=== PATIENT | female | born 1960 | race American Indian/Alaskan Native ===

== ENCOUNTER 2021-05-30 15:28 | Emergency (ER) | payer OTHER ==
[2021-05-30 16:06] VITALS: BP 181/114
--- NOTE | 2021-05-30 16:25 | Emergency Department Report ---
ED General Adult HPI - General Chief complaint: Recheck/Abnormal Lab/Rx Stated complaint: MEDICATION REFILL Time Seen by Provider: 05/30/21 16:18 Source: patient Mode of arrival: Ambulatory Limitations: No Limitations - History of Present Illness Initial comments: pt has asthma and used last inhale rthis am , wants MDI and nebs for a whole month no sob or hunter now -: year(s) Severity scale (0 -10): 0 Associated Symptoms: denies: denies other symptoms, confusion, chest pain, c ough, diaphoresis, fever/chills Treatments Prior to Arrival: none - Related Data Previous Rx's Medication Instructions Recorded Last Taken Type ALBUTEROL NEB's [Proventil 0.083% 2.5 mg IH PRN #1 pack 10/30/18 Unknown Rx NEBS] Albuterol Mdi (or & Nicu Only) 2 puff IH QID PRN #1 inhalation 10/30/18 Unknown Rx [ProAir HFA Inhaler] ALBUTEROL NEB's [Proventil 0.083% 2.5 mg IH PRN PRN 30 Days ml 05/30/21 Unknown Rx NEBS] Albuterol Mdi (or & Nicu Only) 2 puff IH QID PRN #8.5 gram 05/30/21 Unknown Rx [ProAir HFA Inhaler] Allergies Allergy/AdvReac Type Severity Reaction Status Date / Time Penicillins Allergy Unknown Verified 05/30/21 16:24 ED Review of Systems ROS: Stated complaint: MEDICATION REFILL Other details as noted in HPI Constitutional: denies: chills, fever Eyes: denies: eye pain, eye discharge, vision change ENT: denies: ear pain, throat pain Respiratory: denies: cough, shortness of breath, wheezing Cardiovascular: denies: chest pain, palpitations Endocrine: no symptoms reported Gastrointestinal: denies: abdominal pain, nausea, diarrhea Genitourinary: denies: urgency, dysuria, discharge Musculoskeletal: denies: back pain, joint swelling, arthralgia Skin: denies: rash, lesions Neurological: denies: headache, weakness, paresthesias Psychiatric: denies: anxiety, depression Hematological/Lymphatic: denies: easy bleeding, easy bruising ED Past Medical Hx - Past Medical History Previous Medical History?: No Hx Hypertension: No Hx Asthma: Yes - Social History Smoking Status: Never Smoker Substance Use Type: None - Medications Home Medications: Home Medications Medication Instructions Recorded Confirmed Last Taken Type ALBUTEROL NEB's [Proventil 0.083% 2.5 mg IH PRN #1 pack 10/30/18 Unknown Rx NEBS] Albuterol Mdi (or & Nicu Only) 2 puff IH QID PRN #1 inhalation 10/30/18 Unknown Rx [ProAir HFA Inhaler] ALBUTEROL NEB's [Proventil 0.083% 2.5 mg IH PRN PRN 30 Days ml 05/30/21 Unknown Rx NEBS] Albuterol Mdi (or & Nicu Only) 2 puff IH QID PRN #8.5 gram 05/30/21 Unknown Rx [ProAir HFA Inhaler] ED Physical Exam - General Limitations: No Limitations General appearance: alert, in no apparent distress - Head Head exam: Present: atraumatic, normocephalic - Eye Eye exam: Present: normal appearance - ENT ENT exam: Present: mucous membranes moist - Neck Neck exam: Present: normal inspection - Respiratory Respiratory exam: Present: normal lung sounds bilaterally. Absent: respiratory distress - Cardiovascular Cardiovascular Exam: Present: regular rate, normal rhythm. Absent: systolic murmur, diastolic murmur, rubs, gallop - GI/Abdominal GI/Abdominal exam: Present: soft, normal bowel sounds - Extremities Exam Extremities exam: Present: normal inspection - Back Exam Back exam: Present: normal inspection - Neurological Exam Neurological exam: Present: alert, oriented X3 - Psychiatric Psychiatric exam: Present: normal affect, normal mood - Skin Skin exam: Present: warm, dry, intact, normal color. Absent: rash ED Course Vital Signs 05/30/21 05/30/21 05/30/21 16:03 16:09 16:12 Temperature 98.3 F 98.2 F 98.2 F Pulse Rate 66 66 66 Respiratory 16 20 20 Rate Blood Pressure 181/114 Blood Pressure 181/114 181/114 [Left] O2 Sat by Pulse 98 98 98 Oximetry Critical care attestation.: If time is entered above; I have spent that time in minutes in the direct care of this critically ill patient, excluding procedure time. ED Disposition Clinical Impression: Asthma exacerbation, Medication refill Disposition: HOME / SELF CARE / HOMELESS Is pt being admited?: No Does the pt Need Aspirin: No Condition: Stable Instructions: Asthma, Adult Prescriptions: Albuterol Mdi (or & Nicu Only) [ProAir HFA Inhaler] 2 puff IH QID PRN #8.5 gram PRN Reason: Shortness Of Breath ALBUTEROL NEB's [Proventil 0.083% NEBS] 2.5 mg IH PRN PRN 30 Days ml PRN Reason: Shortness Of Breath
== END 2021-05-30 16:42 | disposition home or self-care (01) ==
LOC: ED 15:28
DX: J45.909 Unspecified asthma, uncomplicated (principal); Z76.0 Encounter for issue of repeat prescription; Z88.8 Allergy status to other drugs, medicaments and biological substances; Z79.899 Other long term (current) drug therapy; Z88.0 Allergy status to penicillin
CPT/HCPCS: 99282

== ENCOUNTER 2021-07-06 15:07 | Emergency (ER) | payer OTHER ==
[2021-07-06] MEDS ORDERED: ALBUTEROL 2.5 MG/3 ML NEBU IH ONE (17:38)
[2021-07-06] MEDS ORDERED: IPRATROPIUM 0.02% NEBU 2.5 ML IH ONE (17:38)
--- NOTE | 2021-07-06 19:16 | XRay Report ---
CHEST 2 VIEWS INDICATION / CLINICAL INFORMATION: Shortness of breath. COMPARISON: None available. FINDINGS: SUPPORT DEVICES: None. HEART / MEDIASTINUM: The heart size and pulmonary vasculature are normal. LUNGS / PLEURA: No significant pulmonary or pleural abnormality. There are nipple shadows overlying b oth lower lung zones on the PA view. No pneumothorax. ADDITIONAL FINDINGS: No significant additional findings. IMPRESSION: No acute findings. Signer Name: Dorian Camacho MD Signed: 07/06/2021 7:12 PM Workstation Name: [id number]
== END 2021-07-06 20:00 | disposition left against medical advice (07) ==
LOC: ED 15:07
DX: J45.909 Unspecified asthma, uncomplicated (principal); Z76.0 Encounter for issue of repeat prescription; Z53.21 Procedure and treatment not carried out due to patient leaving prior to being seen by health care provider
CPT/HCPCS: 71046; 93005; 94640; 94644

== ENCOUNTER 2021-08-14 10:16 | Inpatient (IN) | payer OTHER ==
[2021-08-14] MEDS ORDERED: methylPREDNISolone Sod Succinate 125 MG/2 ML INJ IV ONE (10:30)
[2021-08-14] MEDS ORDERED: ALBUTEROL 2.5 MG/3 ML NEBU IH ONE ×2 (10:30→12:16)
[2021-08-14] MEDS ORDERED: SODIUM CHLORIDE 0.9% 500 ML 500 ML IV ONE (10:30)
[2021-08-14] MEDS ORDERED: IPRATROPIUM 0.02% NEBU 2.5 ML IH ONE ×2 (10:30→12:17)
--- NOTE | 2021-08-14 10:59 | XRay Report ---
CHEST 2 VIEWS INDICATION / CLINICAL INFORMATION: Dyspnea. COMPARISON: 07/06/2021 FINDINGS: SUPPORT DEVICES: None. HEART / MEDIASTINUM: There is mild cardiomegaly which appears to be new since 07/06/2021. LUNGS / PLEURA: Mild central pulmonary venous congestion and trace left pleural effusion are identifi ed which are also new. No evidence for pneumonia or pneumothorax. ADDITIONAL FINDINGS: No significant additional findings. IMPRESSION: 1. Mild CHF or volume overload which is new since 07/06/2021. Signer Name: Buster Rolon Jr, MD Signed: 08/14/2021 10:55 AM Workstation Name: [id number]
[2021-08-14 11:15] LABS: Basophils # (Auto) 0.1 K/mm3 (0.0-0.1); Basophils % (Auto) 1.2 % (0.0-1.8); Eosinophils # (Auto) 0.1 K/mm3 (0.0-0.4); Eosinophils % (Auto) 0.9 % (0.0-4.3); Hematocrit 41.9 % (30.3-42.9); Hemoglobin 13.5 gm/dl (10.1-14.3); Lymphocytes # (Auto) 1.2 K/mm3 (1.2-5.4); Lymphocytes % (Auto) 15.4 % (13.4-35.0); Mean Corpuscular HGB Conc 32 % (30-34); Mean Corpuscular Volume 92 fl (79-97); Monocytes # (Auto) 0.6 K/mm3 (0.0-0.8); Monocytes % (Auto) 8.2 % (0.0-7.3); Platelet Count 167 K/mm3 (140-440); Red Blood Count 4.56 M/mm3 (3.65-5.03); Red Cell Distribution Width 15.2 % (13.2-15.2)
[2021-08-14] MEDS ORDERED: FUROSEMIDE 40 MG/4 ML INJ IV ONE (11:24)
--- NOTE | 2021-08-14 11:29 | Electrocardiograph Report ---
[facility] Test Date: 2021-08-14 Test Time: 10:56:33 Pat Name: KRYSTA PATEL Department: Room: Gender: F [employer] Operator: LOLI ZURITAB: 1960 Requested By: EVANGELIST JIMENEZ Order Number: [id number] Reading MD: Chris Davies Measurements Intervals [place] Rate: 92 P: 82 CO: 183 QRS: -64 QRSD: 105 T: 72 QT: 388 QTc: 482 Interpretive Statements Sinus rhythm Ventricular premature complex Biatrial enlargement Incomplete RBBB and LAFB Left ventricular hypertrophy Anterior infarct, old Electronically Signed On 08-14-2021 11:28:51 EDT by Chris Davies
[2021-08-14 11:34] LABS: Alanine Aminotransferase 13 units/L (7-56); Albumin 4.4 g/dL (3.9-5); Blood Urea Nitrogen 8 mg/dL (7-17); Calcium 9.2 mg/dL (8.4-10.2); Hemolysis Index 3
[2021-08-14 11:44] LABS: BUN/Creatinine Ratio 11
[2021-08-14 11:59] LABS: INR 0.98 (0.87-1.13)
--- NOTE | 2021-08-14 12:33 | Emergency Department Report ---
ED Shortness of Breath HPI - General Chief Complaint: Dyspnea/Respdistress Stated Complaint: HUNTER Time Seen by Provider: 08/14/21 10:27 Source: EMS Mode of arrival: Stretcher Limitations: No Limitations - History of Present Illness Initial Comments: pt here for hunter, pursed lip breather on arrival, received 2.5 albuterol bellman captain, on nonrebreather MD Complaint: shortness of breath -: Gradual Pain Scale: 2 Consistency: constant Known History Of: COPD, asthma - Related Data Previous Rx's Medication Instructions Recorded Last Taken Type ALBUTEROL NEB's [Proventil 0.083% 2.5 mg IH PRN #1 pack 10/30/18 Unknown Rx NEBS] Albuterol Mdi (or & Nicu Only) 2 puff IH QID PRN #1 inhalation 10/30/18 Unknown Rx [ProAir HFA Inhaler] ALBUTEROL NEB's [Proventil 0.083% 2.5 mg IH PRN PRN 30 Days ml 05/30/21 Unknown Rx NEBS] Albuterol Mdi (or & Nicu Only) 2 puff IH QID PRN #8.5 gram 05/30/21 Unknown Rx [ProAir HFA Inhaler] Allergies Allergy/AdvReac Type Severity Reaction Status Date / Time Penicillins Allergy Unknown Verified 08/14/21 10:25 ED Review of Systems ROS: Stated complaint: HUNTER Other details as noted in HPI Constitutional: denies: chills, fever Eyes: denies: eye pain, eye discharge, vision change ENT: denies: ear pain, throat pain Respiratory: denies: cough, shortness of breath, wheezing Cardiovascular: denies: chest pain, palpitations Endocrine: no symptoms reported Gastrointestinal: denies: abdominal pain, nausea, diarrhea Genitourinary: denies: urgency, dysuria, discharge Musculoskeletal: denies: back pain, joint swelling, arthralgia Skin: denies: rash, lesions Neurological: denies: headache, weakness, paresthesias Psychiatric: denies: anxiety, depression Hematological/Lymphatic: denies: easy bleeding, easy bruising ED Past Medical Hx - Past Medical History Previous Medical History?: Yes Hx Hypertension: No Hx Asthma: Yes Hx COPD: Yes - Surgical History Past Surgical History?: No - Social History Smoking Status: Never Smoker Substance Use Type: None - Medications Home Medications: Home Medications Medication Instructions Recorded Confirmed Last Taken Type ALBUTEROL NEB's [Proventil 0.083% 2.5 mg IH PRN #1 pack 10/30/18 05/30/21 Unkn own Rx NEBS] Albuterol Mdi (or & Nicu Only) 2 puff IH QID PRN #1 inhalation 10/30/18 05/30/21 Unknown Rx [ProAir HFA Inhaler] ALBUTEROL NEB's [Proventil 0.083% 2.5 mg IH PRN PRN 30 Days ml 05/30/21 Unknown Rx NEBS] Albuterol Mdi (or & Nicu Only) 2 puff IH QID PRN #8.5 gram 05/30/21 Unknown Rx [ProAir HFA Inhaler] ED Physical Exam - General Limitations: No Limitations General appearance: alert, in distress - Head Head exam: Present: atraumatic, normocephalic - Eye Eye exam: Present: normal appearance - ENT ENT exam: Present: mucous membranes moist - Neck Neck exam: Present: normal inspection - Respiratory Respiratory exam: Present: wheezes, rales. Absent: respiratory distress - Cardiovascular Cardiovascular Exam: Present: regular rate, normal rhythm. Absent: systolic murmur, diastolic murmur, rubs, gallop - GI/Abdominal GI/Abdominal exam: Present: soft, normal bowel sounds - Extremities Exam Extremities exam: Present: normal inspection - Back Exam Back exam: Present: normal inspection - Neurological Exam Neurological exam: Present: alert, oriented X3 - Psychiatric Psychiatric exam: Present: normal affect, normal mood - Skin Skin exam: Present: warm, dry, intact, normal color. Absent: rash ED Course Vital Signs 08/14/21 08/14/21 08/14/21 10:24 10:41 10:46 Temperature 98.6 F Pulse Rate 95 H Pulse Rate [ Anterior Bilateral Throughout] Pulse Rate [ Anterior Bilateral] Respiratory 16 0 L 12 Rate Respiratory Rate [Anterior Bilateral Throughout] Respiratory Rate [Anterior Bilateral] Blood Pressure Blood Pressure 155/69 [Left] O2 Sat by Pulse 100 100 97 Oximetry 08/14/21 08/14/21 11:00 12:21 Temperature Pulse Rate 94 H Pulse Rate [ 88 Anterior Bilateral Throughout] Pulse Rate [ 90 98 H Anterior Bilateral] Respiratory 17 Rate Respiratory 26 H Rate [Anterior Bilateral Throughout] Respiratory 24 28 H Rate [Anterior Bilateral] Blood Pressure 162/81 Blood Pressure [Left] O2 Sat by Pulse 94 Oximetry ED Medical Decision Making - Lab Data Result diagrams: 08/14/21 10:47 08/14/21 10:47 Critical care attestation.: If time is entered above; I have spent that time in minutes in the direct care of this critically ill patient, excluding procedure time. ED Disposition Clinical Impression: SOB (shortness of breath), Hypoxia, COPD exacerbation, CHF exacerbation Disposition: ADMITTED INPATIENT Is pt being admited?: Yes Does the pt Need Aspirin: No Condition: Fair Instructions: Chronic Obstructive Pulmonary Disease (ED)
[2021-08-14] MEDS ORDERED: ONDANSETRON 4 MG/2 ML INJ IV PRN (13:00)
[2021-08-14] MEDS ORDERED: ACETAMINOPHEN 325 MG TAB PO PRN (13:00)
--- NOTE | 2021-08-14 13:04 | History and Physical Report ---
<ANDRADE CARROLL - Last Filed: 08/14/21 12:59> History of Present Illness Date of examination: 08/14/21 Date of admission: 08/14/2021 Chief complaint: Difficulty in breathing History of present illness: 61-year-old -[place] female who is an ongoing smoker with history of COPD/asthma, and CVA who presents to [facility], [place] via EMS with complaints of difficulty in breathing. Of note patient is a poor historian. Reports worsening shortness of breath and difficulty in breathing x1 day. Patient states she was unable to perform ADLs or walk more than 10 steps without becoming profoundly short of breath and needing to take a rest. She tried using rescue inhaler with no relief, and patient's daughter Kirill ([phone]) called EMS. EMS found pt to be hypoxic with O2 sat 84-85% on RA. She was placed on supplemental O2 and given albuterol neb tx by EMS with no relief. Work-up included imaging and labs, which showed elevated proBNP at 819, and CXR showing mild volume overload. Endorses bilateral lower extremity edema. Denies cough, sputum production, hemoptysis, fever, chills, nausea, vomiting, diarrhea, constipation, abdominal pain, previous cardiac work-up, or recent sick exposures Past History Past Medical History: COPD (/ Asthma), stroke (mini stroke 2015) Past Surgical History: Other (Tubal ligation) Social history: single, smoking, full code. denies: alcohol abuse, prescription drug abuse, IV drug use Family history: hypertension Medications and Allergies Allergies Allergy/AdvReac Type Severity Reaction Status Date / Time Penicillins Allergy Unknown Verified 08/14/21 10:25 Home Medications Medication Instructions Recorded Confirmed Last Taken Type ALBUTEROL NEB's [Proventil 0.083% 2.5 mg IH PRN PRN 30 Days #30 ml 08/17/21 Unknown Rx NEBS] Albuterol Mdi (or & Nicu Only) 2 puff IH QID PRN #8.5 gram 08/17/21 Unknown Rx [ProAir HFA Inhaler] Aspirin [Aspirin BABY CHEW TAB] 81 mg PO QDAY #30 tab.chew 08/17/21 Unknown Rx AtorvaSTATin [Lipitor] 20 mg PO QHS #30 tablet 08/17/21 Unknown Rx Budesonide [Pulmicort Respules] 0.5 mg IH Q12HRT #30 nebu 08/17/21 Unknown Rx Metoprolol [Lopressor TAB] 25 mg PO BID #60 tablet 08/17/21 Unknown Rx Nicotine [Habitrol] 14 mg TD QDAY #30 patch 08/17/21 Unknown Rx Prednisone [predniSONE 10 mg 10 mg PO .TAPER #1 08/17/21 Unknown Rx (6-Day Pack, 21 Tabs)] lisinopriL [Zestril TAB] 10 mg PO QDAY #30 tablet 08/17/21 Unknown Rx Active Meds: Active Medications Acetaminophen (Acetaminophen 325 Mg Tab) 650 mg PO Q4H PRN PRN Reason: Pain MILD(1-3)/Fever >100.5/ROBLES Albuterol (Albuterol 2.5 Mg/3 Ml Nebu) 2.5 mg IH Q3HRT PRN PRN Reason: Shortness Of Breath Albuterol/Ipratropium (Ipratropium/Albuterol Sulfate 3 Ml Ampul.Neb) 1 ampul IH Q6HRT JONH Aspirin (Aspirin 81 Mg Tab Chew) 81 mg PO QDAY JONH Budesonide (Budesonide 0.5 Mg/2 Ml Nebu) 0.5 mg IH Q12HRT JONH Docusate Sodium (Docusate Sodium 100 Mg Cap) 100 mg PO BID JONH Heparin Sodium (Porcine) (Heparin 5,000 Unit/1 Ml Vial) 5,000 unit SUB-Q Q8HR JONH Lisinopril (Lisinopril 5 Mg Tab) 5 mg PO QDAY JOHN Methylprednisolone Sodium Succinate (Methylprednisolone Sod Succinate 125 Mg/2 Ml Inj) 60 mg IV Q8HR [facility] Nitroglycerin (Nitroglycerin 0.4 Mg Tab Subl) 0.4 mg SL .Q5MIN PRN PRN Reason: Chest Pain Ondansetron HCl (Ondansetron 4 Mg/2 Ml Inj) 4 mg IV Q8H PRN PRN Reason: Nausea And Vomiting Oxycodone/Acetaminophen (Oxycodone /Acetaminophen 5-325mg Tab) 1 tab PO Q6H PRN PRN Reason: Pain, Moderate (4-6) Sodium Chloride (Sodium Chloride 0.9% 10 Ml Flush Syringe) 10 ml IV BID [facility] Sodium Chloride (Sodium Chloride 0.9% 10 Ml Flush Syringe) 10 ml IV PRN PRN PRN Reason: LINE FLUSH Review of Systems All systems: negative Cardiovascular: edema (Bilateral lower extremity), dyspnea on exertion Respiratory: shortness of breath, dyspnea on exertion, wheezing Exam - Physical Exam Narrative exam: Physical exam General appearance: Present: Mild distress, alert and oriented 3 female - EENT Eyes: Present: PERRL, EOM intact ENT: hearing intact, missing teeth - Neck Neck: Present: supple, normal ROM - Respiratory Respiratory effort: Slightly labored labored, on supplemental oxygen Respiratory: Clear throughout - Cardiovascular Heart rate: 94 (bpm) Rhythm: Sinus with occasional PVC, incomplete right bundle branch block Heart Sounds: Present: S1 & S2. Absent: rub, click - Extremities Extremities: no ischemia, pulses intact, bilateral lower extremity trace edema - Peripheral Assessment Peripheral Pulses: within normal limits - Abdominal General gastrointestinal: soft, non-tender, normal bowel sounds - Integumentary Integumentary: Present: warm, dry - Musculoskeletal Musculoskeletal: Able to move all extremities -Neurological Neurological: CN II-XII intact - Psychiatric Psychiatric: Appropriate for situation ,cooperative - Constitutional Vitals: Temp Pulse Resp BP Pulse Ox 98.6 F 98 H 28 H 162/81 94 08/14/21 10:24 08/14/21 12:21 08/14/21 12:21 08/14/21 11:00 08/14/21 11:00 HEART Score - HEART Score Troponin: Troponin T < 0.010 ng/mL (0.00-0.029) 08/14/21 10:47 Results - Labs CBC & Chem 7: 08/14/21 10:47 08/14/21 10:47 Labs: Laboratory Last Values WBC 7.7 K/mm3 (4.5-11.0) 08/14/21 10:47 RBC 4.56 M/mm3 (3.65-5.03) 08/14/21 10:47 Hgb 13.5 gm/dl (10.1-14.3) 08/14/21 10:47 Hct 41.9 % (30.3-42.9) 08/14/21 10:47 MCV 92 fl (79-97) 08/14/21 10:47 MCH 30 pg (28-32) 08/14/21 10:47 MCHC 32 % (30-34) 08/14/21 10:47 RDW 15.2 % (13.2-15.2) 08/14/21 10:47 Plt Count 167 K/mm3 (140-440) 08/14/21 10:47 Lymph % (Auto) 15.4 % (13.4-35.0) 08/14/21 10:47 [place] % (Auto) 8.2 % (0.0-7.3) H 08/14/21 10:47 Eos % (Auto) 0.9 % (0.0-4.3) 08/14/21 10:47 Baso % (Auto) 1.2 % (0.0-1.8) 08/14/21 10:47 Lymph # (Auto) 1.2 K/mm3 (1.2-5.4) 08/14/21 10:47 [place] # (Auto) 0.6 K/mm3 (0.0-0.8) 08/14/21 10:47 Eos # (Auto) 0.1 K/mm3 (0.0-0.4) 08/14/21 10:47 Baso # (Auto) 0.1 K/mm3 (0.0-0.1) 08/14/21 10:47 Add Manual Diff Complete 08/14/21 10:47 Seg Neutrophils % 74.3 % (40.0-70.0) H 08/14/21 10:47 Seg Neutrophils # 5.7 K/mm3 (1.8-7.7) 08/14/21 10:47 PT 14.1 Sec. (12.2-14.9) 08/14/21 10:47 INR 0.98 (0.87-1.13) 08/14/21 10:47 Sodium 142 mmol/L (137-145) 08/14/21 10:47 Potassium 3.7 mmol/L (3.6-5.0) 08/14/21 10:47 Chloride 105.3 mmol/L (98-107) 08/14/21 10:47 Carbon Dioxide 24 mmol/L (22-30) 08/14/21 10:47 Anion Gap 16 mmol/L 08/14/21 10:47 BUN 8 mg/dL (7-17) 08/14/21 10:47 Creatinine 0.7 mg/dL (0.6-1.2) 08/14/21 10:47 Estimated GFR > 60 ml/min 08/14/21 10:47 BUN/Creatinine Ratio 11 % 08/14/21 10:47 Glucose 118 mg/dL (65-100) H 08/14/21 10:47 Calcium 9.2 mg/dL (8.4-10.2) 08/14/21 10:47 Total Bilirubin 0.60 mg/dL (0.1-1.2) 08/14/21 10:47 AST 20 units/L (5-40) 08/14/21 10:47 ALT 13 units/L (7-56) 08/14/21 10:47 Alkaline Phosphatase 86 units/L (35-129) 08/14/21 10:47 Total Creatine Kinase 93 units/L (30-135) 08/14/21 10:47 CK-MB (CK-2) 3.0 ng/mL (0.0-4.0) 08/14/21 10:47 CK-MB (CK-2) Rel Index 3.2 (0-4) 08/14/21 10:47 Troponin T < 0.010 ng/mL (0.00-0.029) 08/14/21 10:47 NT-Pro-B Natriuret Pep 819.7 pg/mL (0-900) 08/14/21 10:47 Total Protein 7.1 g/dL (6.3-8.2) 08/14/21 10:47 Albumin 4.4 g/dL (3.9-5) 08/14/21 10:47 Albumin/Globulin Ratio 1.6 % 08/14/21 10:47 - Diagnostic Impressions Diagnostic Impressions: FINDINGS: SUPPORT DEVICES: None. HEART / MEDIASTINUM: There is mild cardiomegaly which appears to be new since 07/06/2021. LUNGS / PLEURA: Mild central pulmonary venous congestion and trace left pleural effusion are identified which are also new. No evidence for pneumonia or pneumothorax. ADDITIONAL FINDINGS: No significant additional findings. IMPRESSION: 1. Mild CHF or volume overload which is new since 07/06/2021. Assessment and Plan Assessment and plan: Acute CHF (new onset) -BNP elevated at 819 -Troponin negative x1, trend -CXR shows Mild CHF or volume overload which is new since 07/06/2021 -Patient has trace bilateral lower extremity edema -Start IV Lasix daily -Continuous remote expanded function dental assistant -Echo pending -Will continue small telemetry monitoring -Start ASA, statin and SCAR, hold beta-kevin due to incomplete right bundle branch block -Cardiology consulted with plans to follow Acute hypoxic respiratory failure -No Baseline home oxygen requirements with history of COPD/asthma -O2 sat 84-88% on RA -Currently on supplemental 4L -On IV steroids -On scheduled duo nebs and Pulmicort, as needed albuterol -Monitor saturations -Continue supplemental oxygen wean as tolerated COPD/ Asthma -Does not appear to be in acute exacerbation -On schedule and as needed nebs -IV systemic steroids Tobacco abuse -Current every day smoker -Counseled for cessation for 14 minutes, verbalized understanding -Nicotine patch when necessary DVT PPX -On Heparin <AICHA MARINELLI - Last Filed: 08/18/21 07:15> History of Present Illness Date of admission: 08/16/21 13:11 History of present illness: I saw and evaluated the patient. I agree with the findings and the plan of care as documented in the Nurse Practitioner's~note, with the following corrections and additions. Exam - Constitutional Vitals: Temp Pulse Resp BP Pulse Ox 97.6 F 81 18 112/58 95 08/17/21 11:00 08/17/21 13:50 08/17/21 13:50 08/17/21 08:56 08/17/21 12:15 HEART Score - HEART Score Troponin: Troponin T < 0.010 ng/mL (0.00-0.029) 08/14/21 13:55 Results - Labs CBC & Chem 7: 08/14/21 10:47 08/15/21 05:26 Labs: Laboratory Last Values WBC 7.7 K/mm3 (4.5-11.0) 08/14/21 10:47 RBC 4.56 M/mm3 (3.65-5.03) 08/14/21 10:47 Hgb 13.5 gm/dl (10.1-14.3) 08/14/21 10:47 Hct 41.9 % (30.3-42.9) 08/14/21 10:47 MCV 92 fl (79-97) 08/14/21 10:47 MCH 30 pg (28-32) 08/14/21 10:47 MCHC 32 % (30-34) 08/14/21 10:47 RDW 15.2 % (13.2-15.2) 08/14/21 10:47 Plt Count 167 K/mm3 (140-440) 08/14/21 10:47 Lymph % (Auto) 15.4 % (13.4-35.0) 08/14/21 10:47 [place] % (Auto) 8.2 % (0.0-7.3) H 08/14/21 10:47 Eos % (Auto) 0.9 % (0.0-4.3) 08/14/21 10:47 Baso % (Auto) 1.2 % (0.0-1.8) 08/14/21 10:47 Lymph # (Auto) 1.2 K/mm3 (1.2-5.4) 08/14/21 10:47 [place] # (Auto) 0.6 K/mm3 (0.0-0.8) 08/14/21 10:47 Eos # (Auto) 0.1 K/mm3 (0.0-0.4) 08/14/21 10:47 Baso # (Auto) 0.1 K/mm3 (0.0-0.1) 08/14/21 10:47 Add Manual Diff Complete 08/14/21 10:47 Seg Neutrophils % 74.3 % (40.0-70.0) H 08/14/21 10:47 Seg Neutrophils # 5.7 K/mm3 (1.8-7.7) 08/14/21 10:47 PT 14.1 Sec. (12.2-14.9) 08/14/21 10:47 INR 0.98 (0.87-1.13) 08/14/21 10:47 Sodium 138 mmol/L (137-145) 08/15/21 05:26 Potassium 4.0 mmol/L (3.6-5.0) 08/15/21 05:26 Chloride 97.0 mmol/L (98-107) L 08/15/21 05:26 Carbon Dioxide 25 mmol/L (22-30) 08/15/21 05:26 Anion Gap 20 mmol/L 08/15/21 05:26 BUN 19 mg/dL (7-17) H 08/15/21 05:26 Creatinine 0.8 mg/dL (0.6-1.2) 08/15/21 05:26 Estimated GFR > 60 ml/min 08/15/21 05:26 BUN/Creatinine Ratio 24 % 08/15/21 05:26 Glucose 181 mg/dL (65-100) H 08/15/21 05:26 Calcium 9.1 mg/dL (8.4-10.2) 08/15/21 05:26 Magnesium 1.80 mg/dL (1.7-2.3) 08/14/21 13:58 Total Bilirubin 0.60 mg/dL (0.1-1.2) 08/14/21 10:47 AST 20 units/L (5-40) 08/14/21 10:47 ALT 13 units/L (7-56) 08/14/21 10:47 Alkaline Phosphatase 86 units/L (35-129) 08/14/21 10:47 Total Creatine Kinase 93 units/L (30-135) 08/14/21 10:47 CK-MB (CK-2) 3.0 ng/mL (0.0-4.0) 08/14/21 10:47 CK-MB (CK-2) Rel Index 3.2 (0-4) 08/14/21 10:47 Troponin T < 0.010 ng/mL (0.00-0.029) 08/14/21 13:55 NT-Pro-B Natriuret Pep 819.7 pg/mL (0-900) 08/14/21 10:47 Total Protein 7.1 g/dL (6.3-8.2) 08/14/21 10:47 Albumin 4.4 g/dL (3.9-5) 08/14/21 10:47 Albumin/Globulin Ratio 1.6 % 08/14/21 10:47 Triglycerides 34 mg/dL (2-149) 08/15/21 05:26 Cholesterol 143 mg/dL (50-199) 08/15/21 05:26 LDL Cholesterol Direct 64 mg/dL (50-130) 08/15/21 05:26 HDL Cholesterol 78 mg/dL (40-59) H 08/15/21 05:26 Cholesterol/HDL Ratio 1.83 % 08/15/21 05:26 [place]/IV: Voiding Method Toilet
[2021-08-14] MEDS ORDERED: ALBUTEROL 2.5 MG/3 ML NEBU IH PRN (14:00)
--- NOTE | 2021-08-14 14:20 | Consultation ---
History of Present Illness Consult date: 08/14/21 Requesting physician: ANDRADE CARROLL Consult reason: congestive heart failure History of present illness: Patient is a 61-year-old female with a past medical history of COPD/asthma, CVA, and current smoker for over 30 years who presented to the ED today with a complaint of shortness of breath which began last night. Patient is a poor historian. Patient reports that after her shift last night when she was home she developed sudden onset shortness of breath that was worse with exertion. However patient also reports that her shortness of breath persisted even while at rest. She reports that she attempted to take her inhaler and nebulizer treatment with no relief of symptoms. Per documentation EMS was notified and patient was found to be hypoxic and transported to the ED. Patient also reports sharp left upper quadrant abdominal pain with inspiration and cough and chronic orthopnea. In the ED labs were unremarkable with a borderline BNP of 819. CXR read mild volume overload. Patient denies chest pain, nausea, vomiting, diaphoresis, or palpitations. Patient is previously unknown to our practice. Cardiology is consulted for CHF. Past History Past Medical History: COPD (/ Asthma), stroke (mini stroke 2015) Past Surgical History: Other (Tubal ligation) Social history: single, smoking, full code. denies: alcohol abuse, prescription drug abuse, IV drug use Family history: hypertension Medications and Allergies Allergies Allergy/AdvReac Type Severity Reaction Status Date / Time Penicillins Allergy Unknown Verified 08/14/21 10:25 Home Medications Medication Instructions Recorded Confirmed Last Taken Type ALBUTEROL NEB's [Proventil 0.083% 2.5 mg IH PRN #1 pack 10/30/18 05/30/21 Unknown Rx NEBS] Albuterol Mdi (or & Nicu Only) 2 puff IH QID PRN #1 inhalation 10/30/18 05/30/21 Unknown Rx [ProAir HFA Inhaler] ALBUTEROL NEB's [Proventil 0.083% 2.5 mg IH PRN PRN 30 Days ml 05/30/21 Unknown Rx NEBS] Albuterol Mdi (or & Nicu Only) 2 puff IH QID PRN #8.5 gram 05/30/21 Unknown Rx [ProAir HFA Inhaler] Active Meds: Active Medications Acetaminophen (Acetaminophen 325 Mg Tab) 650 mg PO Q4H PRN PRN Reason: Pain MILD(1-3)/Fever >100.5/ROBLES Albuterol (Albuterol 2.5 Mg/3 Ml Nebu) 2.5 mg IH Q3HRT PRN PRN Reason: Shortness Of Breath Albuterol/Ipratropium (Ipratropium/Albuterol Sulfate 3 Ml Ampul.Neb) 1 ampul IH Q6HRT [facility] Aspirin (Aspirin 81 Mg Tab Chew) 81 mg PO QDAY [facility] Atorvastatin Calcium (Atorvastatin 20 Mg Tab) 20 mg PO QHS [facility] Budesonide (Budesonide 0.5 Mg/2 Ml Nebu) 0.5 mg IH Q12HRT [facility] Docusate Sodium (Docusate Sodium 100 Mg Cap) 100 mg PO BID [facility] Furosemide (Furosemide 40 Mg/4 Ml Inj) 40 mg IV QDAY [facility] Heparin Sodium (Porcine) (Heparin 5,000 Unit/1 Ml Vial) 5,000 unit SUB-Q Q8HR [facility] Lisinopril (Lisinopril 10 Mg Tab) 10 mg PO QDAY [facility] Methylprednisolone Sodium Succinate (Methylprednisolone Sod Succinate 125 Mg/2 Ml Inj) 60 mg IV Q8H [facility] Metoprolol Tartrate (Metoprolol Tartrate 25 Mg Tab) 25 mg PO BID [facility] Nicotine (Nicotine 14 Mg/24 Hr Patch) 14 mg TD QDAY [facility] Nitroglycerin (Nitroglycerin 0.4 Mg Tab Subl) 0.4 mg SL .Q5MIN PRN PRN Reason: Chest Pain Ondansetron HCl (Ondansetron 4 Mg/2 Ml Inj) 4 mg IV Q8H PRN PRN Reason: Nausea And Vomiting Oxycodone/Acetaminophen (Oxycodone /Acetaminophen 5-325mg Tab) 1 tab PO Q6H PRN PRN Reason: Pain, Moderate (4-6) Sodium Chloride (Sodium Chloride 0.9% 10 Ml Flush Syringe) 10 ml IV BID [facility] Sodium Chloride (Sodium Chloride 0.9% 10 Ml Flush Syringe) 10 ml IV PRN PRN PRN Reason: LINE FLUSH Review of Systems Constitutional: no weight loss, no weight gain, no fever, no chills Ears, nose, mouth and throat: no sinus pressure, no sinus pain Cardiovascular: orthopnea, shortness of breath, dyspnea on exertion Respiratory: cough, shortness of breath, dyspnea on exertion, pain on inspiration Gastrointestinal: abdominal pain (Left upper quad), no nausea, no vomiting, no diarrhea Musculoskeletal: no neck stiffness, no neck pain, no shooting arm pain Integumentary: no rash, no pruritis, no redness Neurological: no head injury, no transient paralysis Psychiatric: no anxiety, no memory loss Endocrine: no cold intolerance, no heat intolerance Physical Examination Vital Signs Temp Pulse Resp BP Pulse Ox 98.6 F 95 H 16 155/69 100 08/14/21 10:24 08/14/21 10:24 08/14/21 10:24 08/14/21 10:24 08/14/21 10:24 General appearance: no acute distress HEENT: Positive: PERRL, Normocephaly Neck: Positive: trachea midline Cardiac: Positive: Reg Rate and Rhythm Lungs: Positive: Decreased Breath Sounds Neuro: Positive: Grossly Intact Abdomen: Positive: Soft Skin: Negative: Rash, Suspicious Lesions, Ulceration Extremities: Present: upper extr. pulses, edema (Trace), Cool Results 08/14/21 10:47 08/14/21 10:47 Cardiac Enzymes 08/14/21 Range/Units 10:47 AST 20 (5-40) units/L CK-MB (CK-2) 3.0 (0.0-4.0) ng/mL Coagulation 08/14/21 Range/Units 10:47 PT 14.1 (12.2-14.9) Sec. INR 0.98 (0.87-1.13) CBC 08/14/21 Range/Units 10:47 WBC 7.7 (4.5-11.0) K/mm3 RBC 4.56 (3.65-5.03) M/mm3 Hgb 13.5 (10.1-14.3) gm/dl Hct 41.9 (30.3-42.9) % Plt Count 167 (140-440) K/mm3 Lymph # (Auto) 1.2 (1.2-5.4) K/mm3 [place] # (Auto) 0.6 (0.0-0.8) K/mm3 Eos # (Auto) 0.1 (0.0-0.4) K/mm3 Baso # (Auto) 0.1 (0.0-0.1) K/mm3 Comprehensive Metabolic Panel 08/14/21 Range/Units 10:47 Sodium 142 (137-145) mmol/L Potassium 3.7 (3.6-5.0) mmol/L Chloride 105.3 (98-107) mmol/L Carbon Dioxide 24 (22-30) mmol/L BUN 8 (7-17) mg/dL Creatinine 0.7 (0.6-1.2) mg/dL Glucose 118 H (65-100) mg/dL Calcium 9.2 (8.4-10.2) mg/dL AST 20 (5-40) units/L ALT 13 (7-56) units/L Alkaline Phosphatase 86 (35-129) units/L Total Protein 7.1 (6.3-8.2) g/dL Albumin 4.4 (3.9-5) g/dL - Imaging and Cardiology Echo: pending EKG: report reviewed, image reviewed EKG interpretations - Telemetry EKG Rhythm: Sinus Rhythm - EKG Sinus rhythms and dysrhythmias: sinus rhythm AV and intraventricular conduction: left bundle branch block, left anterior fascicular Assessment and Plan Patient is a 61-year-old female with a past medical history of COPD/asthma, CVA, and current smoker for over 30 years who presented to the ED today with a complaint of shortness of breath which began last night. Acute respiratory failure COPD exacerbation Hypertension CHF? History of CVA Tobacco abuse Plan: EKG shows sinus rhythm 92 with incomplete RBBB and LAFB. No acute ischemic changes. Troponins negative x1. Repeat cardiac enzymes pending. Patient denies any chest pain BNP borderline, chest x-ray read as mild volume overload, and patient reports chronic orthopnea. Agree with diuresis with Lasix 40 mg IV daily with close monitoring of her renal function, strict I&O's, and repeat BMP Initiate GDMT with aspirin, Lipitor, metoprolol 25 mg p.o. twice daily, and lisinopril 10 mg p.o. daily Echo pending Due to patient's complaint of shortness of breath and pain with inspiration will order CT chest to rule out PE Patient reports drinking alcohol every day primary team may wish to consider CIWA protocol Patient in conjunction with Dr. Davies who agrees with this plan of care - Patient Problems (1) Tobacco abuse Status: Acute (2) History of CVA (cerebrovascular accident) Status: Acute (3) SOB (shortness of breath) Status: Acute (4) COPD exacerbation Status: Acute (5) CHF exacerbation Status: Acute
[2021-08-14] MEDS: IPRATROPIUM/ALBUTEROL SULFATE 3 ML AMPUL.NEB IH SCH ×2 (15:40→20:26)
[2021-08-14] MEDS: NICOTINE 14 MG/24 HR PATCH TD SCH (16:07)
[2021-08-14] MEDS: METOPROLOL TARTRATE 25 MG TAB PO SCH ×2 (16:07→23:04)
[2021-08-14] MEDS: HEPARIN 5,000 UNIT/1 ML VIAL SUB-Q SCH ×2 (16:07→23:03)
--- NOTE | 2021-08-14 16:54 | Cat Scan Report ---
CTA CHEST WITH CONTRAST INDICATION / CLINICAL INFORMATION: SOB, r/o PE. TECHNIQUE: Axial CT images were obtained through the chest after injection of IV contrast. 3 plane MA P and/or 3D reconstructions were produced. All CT scans at this location are performed using CT dose reduction for ALARA by means of automated exposure control. COMPARISON: None available. FINDINGS: The pulmonary arteries are patent without filling defect or evidence for PTE. There is right hilar no charlene enlargement with right hilar node measuring 2.3 cm. Aorta appears normal. Trace pericardial fluid . No significant atherosclerotic change in the coronary vessels is definitely seen. Visualized portio ns of the upper abdomen appear normal. Emphysematous changes seen within the lungs. Small areas of in terstitial nodularity with patchy densities are seen within the upper lungs right greater than left. Surrounding nodular densities are also seen within the right lower lung with rounded areas measuring up to 8 mm. IMPRESSION: 1. No evidence for PTE 2. Interstitial prominence with pulmonary opacities and areas of nodularity are seen throughout bilat eral lungs right greater than left. Findings could represent atypical infection however pulmonary nod ule cannot be excluded. Follow-up is recommended to document resolution Signer Name: Jerzy Conde MD Signed: 08/14/2021 4:48 PM Workstation Name: [id number]
[2021-08-14] MEDS: methylPREDNISolone Sod Succinate 125 MG/2 ML INJ IV SCH (19:29)
[2021-08-14] MEDS: BUDESONIDE 0.5 MG/2 ML NEBU IH SCH (20:26)
[2021-08-14] MEDS: DOCUSATE SODIUM 100 MG CAP PO SCH (23:03)
[2021-08-14] MEDS: oxyCODONE /ACETAMINOPHEN 5-325MG TAB PO PRN (23:16)
[2021-08-15] MEDS: IPRATROPIUM/ALBUTEROL SULFATE 3 ML AMPUL.NEB IH SCH ×4 (02:09→20:30)
[2021-08-15] MEDS: methylPREDNISolone Sod Succinate 125 MG/2 ML INJ IV SCH ×3 (02:10→17:04)
[2021-08-15] MEDS: HEPARIN 5,000 UNIT/1 ML VIAL SUB-Q SCH ×3 (05:30→21:13)
[2021-08-15 06:11] LABS: BUN/Creatinine Ratio 24; Blood Urea Nitrogen 19 mg/dL (7-17); Calcium 9.1 mg/dL (8.4-10.2); Hemolysis Index 9
[2021-08-15 06:13] LABS: Chol/HDL Ratio 1.83 %
--- NOTE | 2021-08-15 07:35 | Progress Note ---
Assessment and Plan Assessment and plan: Acute CHF (new onset); unknown ejection fraction -BNP elevated at 819 -Troponin negative x1, trend -CXR shows Mild CHF or volume overload which is new since 07/06/2021 -Patient has trace bilateral lower extremity edema -Start IV Lasix daily -Continuous remote environmental monitoring specialist -Echo pending -Will continue small telemetry monitoring -Start ASA, statin and SCAR, hold beta-kevin due to incomplete right bundle branch block -Cardiology consulted with plans to follow Acute hypoxic respiratory failure : Requiring supplemental oxygen -No Baseline home oxygen requirements with history of COPD/asthma -O2 sat 84-88% on RA -Currently on supplemental 4L -On IV steroids -On scheduled duo nebs and Pulmicort, as needed albuterol -Monitor saturations -Continue supplemental oxygen wean as tolerated History of COPD/ Asthma -Does not appear to be in acute exacerbation -On schedule and as needed nebs -IV systemic steroids Ongoing tobacco abuse -Current every day smoker Smoking cessation counseling for 14 minutes, verbalized understanding -Nicotine patch when necessary DVT PPX; -On Heparin Full CODE STATUS: Patient comes Closely monitor the patient and adjust management as needed Follow consultants and recommendations Plan of care reviewed with the patient and her nurse History Interval history: I have seen and examined the patient at the bedside Patient's chart and medications reviewed Admitted with worsening shortness of breath Feels slightly better Vital signs noted Hospitalist Physical - Constitutional Vitals: Temp Pulse Resp BP Pulse Ox 97.8 F 85 18 124/54 94 08/15/21 03:18 08/15/21 03:20 08/15/21 03:18 08/15/21 03:18 08/15/21 03:20 General appearance: Present: no acute distress, well-nourished (However however Dr. Joyner) - EENT Eyes: Present: PERRL, EOM intact - Neck Neck: Present: supple, normal ROM - Respiratory Respiratory effort: normal Respiratory: bilateral: diminished, negative: rales, rhonchi, wheezing - Cardiovascular Rhythm: regular Heart Sounds: Present: S1 & S2 (Yes patient stopped HD. Issues overnight. Discontinue) - Extremities Extremities: no ischemia, No edema ( new care new in) - Abdominal General gastrointestinal: soft, non-tender, non-distended ( nurse practition ers,), normal bowel sounds (Abdominal palpation) - Integumentary Integumentary: Present: clear, warm - Psychiatric Psychiatric: appropriate mood/affect, cooperative - Neurologic Neurologic: CNII-XII intact, moves all extremities (Because I myself am tired) HEART Score - HEART Score Troponin: Troponin T < 0.010 ng/mL (0.00-0.029) 08/14/21 13:55 Results - Labs CBC & Chem 7: 08/14/21 10:47 08/15/21 05:26 Labs: Laboratory Last Values WBC 7.7 K/mm3 (4.5-11.0) 08/14/21 10:47 RBC 4.56 M/mm3 (3.65-5.03) 08/14/21 10:47 Hgb 13.5 gm/dl (10.1-14.3) 08/14/21 10:47 Hct 41.9 % (30.3-42.9) 08/14/21 10:47 MCV 92 fl (79-97) 08/14/21 10:47 MCH 30 pg (28-32) 08/14/21 10:47 MCHC 32 % (30-34) 08/14/21 10:47 RDW 15.2 % (13.2-15.2) 08/14/21 10:47 Plt Count 167 K/mm3 (140-440) 08/14/21 10:47 Lymph % (Auto) 15.4 % (13.4-35.0) 08/14/21 10:47 [place] % (Auto) 8.2 % (0.0-7.3) H 08/14/21 10:47 Eos % (Auto) 0.9 % (0.0-4.3) 08/14/21 10:47 Baso % (Auto) 1.2 % (0.0-1.8) 08/14/21 10:47 Lymph # (Auto) 1.2 K/mm3 (1.2-5.4) 08/14/21 10:47 [place] # (Auto) 0.6 K/mm3 (0.0-0.8) 08/14/21 10:47 Eos # (Auto) 0.1 K/mm3 (0.0-0.4) 08/14/21 10:47 Baso # (Auto) 0.1 K/mm3 (0.0-0.1) 08/14/21 10:47 Add Manual Diff Complete 08/14/21 10:47 Seg Neutrophils % 74.3 % (40.0-70.0) H 08/14/21 10:47 Seg Neutrophils # 5.7 K/mm3 (1.8-7.7) 08/14/21 10:47 PT 14.1 Sec. (12.2-14.9) 08/14/21 10:47 INR 0.98 (0.87-1.13) 08/14/21 10:47 Sodium 138 mmol/L (137-145) 08/15/21 05:26 Potassium 4.0 mmol/L (3.6-5.0) 08/15/21 05:26 Chloride 97.0 mmol/L (98-107) L 08/15/21 05:26 Carbon Dioxide 25 mmol/L (22-30) 08/15/21 05:26 Anion Gap 20 mmol/L 08/15/21 05:26 BUN 19 mg/dL (7-17) H 08/15/21 05:26 Creatinine 0.8 mg/dL (0.6-1.2) 08/15/21 05:26 Estimated GFR > 60 ml/min 08/15/21 05:26 BUN/Creatinine Ratio 24 % 08/15/21 05:26 Glucose 181 mg/dL (65-100) H 08/15/21 05:26 Calcium 9.1 mg/dL (8.4-10.2) 08/15/21 05:26 Magnesium 1.80 mg/dL (1.7-2.3) 08/14/21 13:58 Total Bilirubin 0.60 mg/dL (0.1-1.2) 08/14/21 10:47 AST 20 units/L (5-40) 08/14/21 10:47 ALT 13 units/L (7-56) 08/14/21 10:47 Alkaline Phosphatase 86 units/L (35-129) 08/14/21 10:47 Total Creatine Kinase 93 units/L (30-135) 08/14/21 10:47 CK-MB (CK-2) 3.0 ng/mL (0.0-4.0) 08/14/21 10:47 CK-MB (CK-2) Rel Index 3.2 (0-4) 08/14/21 10:47 Troponin T < 0.010 ng/mL (0.00-0.029) 08/14/21 13:55 NT-Pro-B Natriuret Pep 819.7 pg/mL (0-900) 08/14/21 10:47 Total Protein 7.1 g/dL (6.3-8.2) 08/14/21 10:47 Albumin 4.4 g/dL (3.9-5) 08/14/21 10:47 Albumin/Globulin Ratio 1.6 % 08/14/21 10:47 Triglycerides 34 mg/dL (2-149) 08/15/21 05:26 Cholesterol 143 mg/dL (50-199) 08/15/21 05:26 LDL Cholesterol Direct 64 mg/dL (50-130) 08/15/21 05:26 HDL Cholesterol 78 mg/dL (40-59) H 08/15/21 05:26 Cholesterol/HDL Ratio 1.83 % 08/15/21 05:26 [place]/IV: Voiding Method Toilet Active Medications - Current Medications Current Medications: Generic Name Dose Route Start Last Admin Trade Name Freq PRN Reason Stop Dose Admin Acetaminophen 650 mg 08/14/21 13:00 Acetaminophen 325 Mg Tab PO Q4H PRN Pain MILD(1-3)/Fever >100.5/ROBLES Albuterol 2.5 mg 08/14/21 14:00 Albuterol 2.5 Mg/3 Ml Nebu IH Q3HRT PRN Shortness Of Breath Albuterol/Ipratropium 1 ampul 08/14/21 14:00 08/15/21 02:09 Ipratropium/Albuterol Sulfate 3 Ml Ampul.Neb IH 1 ampul Q6HRT [facility] Administration Aspirin 81 mg 08/15/21 10:00 Aspirin 81 Mg Tab Chew PO QDAY [facility] Atorvastatin Calcium 20 mg 08/14/21 22:00 08/14/21 23:02 Atorvastatin 20 Mg Tab PO 20 mg QHS [facility] Administration Budesonide 0.5 mg 08/14/21 20:00 08/14/21 20:26 Budesonide 0.5 Mg/2 Ml Nebu IH 0.5 mg Q12HRT [facility] Administration Docusate Sodium 100 mg 08/14/21 22:00 08/14/21 23:03 Docusate Sodium 100 Mg Cap PO 100 mg BID [facility] Administration Furosemide 40 mg 08/15/21 10:00 Furosemide 40 Mg/4 Ml Inj IV QDAY [facility] Heparin Sodium (Porcine) 5,000 unit 08/14/21 14:00 08/15/21 05:30 Heparin 5,000 Unit/1 Ml Vial SUB-Q 5,000 unit Q8HR [facility] Administration Lisinopril 10 mg 08/15/21 10:00 Lisinopril 10 Mg Tab PO QDAY [facility] Methylprednisolone Sodium Succinate 60 mg 08/14/21 18:00 08/15/21 02:10 Methylprednisolone Sod Succinate 125 Mg/2 Ml Inj IV 60 mg Q8H [facility] Administration Metoprolol Tartrate 25 mg 08/14/21 15:00 08/14/21 23:04 Metoprolol Tartrate 25 Mg Tab PO 25 mg BID [facility] Administration Nicotine 14 mg 08/14/21 14:00 08/14/21 16:07 Nicotine 14 Mg/24 Hr Patch TD 14 mg QDAY [facility] Administration Nitroglycerin 0.4 mg 08/14/21 13:00 Nitroglycerin 0.4 Mg Tab Subl SL .Q5MIN PRN Chest Pain Ondansetron HCl 4 mg 08/14/21 13:00 Ondansetron 4 Mg/2 Ml Inj IV Q8H PRN Nausea And Vomiting Oxycodone/Acetaminophen 1 tab 08/14/21 13:00 08/14/21 23:16 Oxycodone /Acetaminophen 5-325mg Tab PO 1 tab Q6H PRN Administration Pain, Moderate (4-6) Sodium Chloride 10 ml 08/14/21 22:00 08/14/21 23:03 Sodium Chloride 0.9% 10 Ml Flush Syringe IV 10 ml BID [facility] Administration Sodium Chloride 10 ml 08/14/21 13:00 Sodium Chloride 0.9% 10 Ml Flush Syringe IV PRN PRN LINE FLUSH
[2021-08-15] MEDS: BUDESONIDE 0.5 MG/2 ML NEBU IH SCH ×2 (09:31→20:30)
[2021-08-15] MEDS ORDERED: FUROSEMIDE 40 MG/4 ML INJ IV SCH (10:00)
[2021-08-15] MEDS ORDERED: LISINOPRIL 5 MG TAB PO SCH (10:00)
[2021-08-15] MEDS: METOPROLOL TARTRATE 25 MG TAB PO SCH ×2 (10:03→21:13)
[2021-08-15] MEDS: ASPIRIN 81 MG TAB CHEW PO SCH (10:03)
[2021-08-15] MEDS: DOCUSATE SODIUM 100 MG CAP PO SCH ×2 (10:03→21:13)
[2021-08-15] MEDS: NICOTINE 14 MG/24 HR PATCH TD SCH (10:03)
[2021-08-15] MEDS: LISINOPRIL 10 MG TAB PO SCH (10:04)
--- NOTE | 2021-08-15 19:20 | Progress Note ---
Assessment and Plan Continue present management. - Patient Problems (1) COPD exacerbation Current Visit: Yes Status: Acute (2) Aortic regurgitation Current Visit: Yes Status: Acute (3) History of CVA (cerebrovascular accident) Current Visit: Yes Status: Chronic Subjective Date of service: 08/22/21 Principal diagnosis: COPD exacerbation Interval history: She still has some shortness of breath which chest tightness. Objective Vital Signs Temp Pulse Pulse Resp Resp BP BP 08/15/21 15:25 98.7 F 89 18 128/57 08/15/21 14:54 92 H 16 08/15/21 13:00 18 08/15/21 09:31 88 16 08/15/21 09:30 08/15/21 07:41 97.2 F L 81 18 140/59 08/15/21 07:30 88 08/15/21 03:20 85 08/15/21 03:18 97.8 F 18 124/54 08/15/21 02:09 91 H 15 08/15/21 01:07 18 08/14/21 23:16 90 08/14/21 23:04 87 168/76 08/14/21 22:53 98.6 F 18 168/76 08/14/21 21:16 87 17 141/71 08/14/21 21:00 89 24 141/71 08/14/21 20:46 90 20 148/60 08/14/21 20:35 88 20 08/14/21 20:34 08/14/21 20:30 85 14 148/60 08/14/21 20:16 86 21 132/75 08/14/21 20:00 80 21 132/75 08/14/21 19:46 83 21 131/59 08/14/21 19:40 97.9 F 85 18 132/59 08/14/21 19:30 131/59 Pulse Ox 08/15/21 15:25 97 08/15/21 14:54 08/15/21 13:00 99 08/15/21 09:31 08/15/21 09:30 97 08/15/21 07:41 93 08/15/21 07:30 08/15/21 03:20 94 08/15/21 03:18 08/15/21 02:09 08/15/21 01:07 99 08/14/21 23:16 08/14/21 23:04 08/14/21 22:53 08/14/21 21:16 98 08/14/21 21:00 99 08/14/21 20:46 99 08/14/21 20:35 08/14/21 20:34 99 08/14/21 20:30 100 08/14/21 20:16 100 08/14/21 20:00 100 08/14/21 19:46 99 08/14/21 19:40 98 08/14/21 19:30 99 - Physical Examination General: No Apparent Distress HEENT: Positive: EOMI, Normocephaly, Mucus Membranes Moist Neck: Positive: trachea midline Cardiac: Positive: Reg Rate and Rhythm Lungs: Positive: clear to auscultation Neuro: Positive: Grossly Intact Abdomen: Positive: Soft, Active Bowel Sounds. Negative: Tender Skin: Negative: Rash Extremities: Present: Cool. Absent: edema - Labs and Meds Lipids 08/15/21 Range/Units 05:26 Triglycerides 34 (2-149) mg/dL Cholesterol 143 (50-199) mg/dL HDL Cholesterol 78 H (40-59) mg/dL Cholesterol/HDL Ratio 1.83 % Comprehensive Metabolic Panel 08/15/21 Range/Units 05:26 Sodium 138 (137-145) mmol/L Potassium 4.0 (3.6-5.0) mmol/L Chloride 97.0 L (98-107) mmol/L Carbon Dioxide 25 (22-30) mmol/L BUN 19 H (7-17) mg/dL Creatinine 0.8 (0.6-1.2) mg/dL Glucose 181 H (65-100) mg/dL Calcium 9.1 (8.4-10.2) mg/dL - Imaging and Cardiology Echo: pending - Telemetry EKG Rhythm: Sinus Rhythm AV and intraventricular conduction: left bundle branch block, left anterior fascicular
[2021-08-16] MEDS: NITROGLYCERIN 0.4 MG TAB SUBL SL PRN ×3 (01:11→01:33)
[2021-08-16] MEDS: methylPREDNISolone Sod Succinate 125 MG/2 ML INJ IV SCH ×3 (01:51→19:15)
[2021-08-16] MEDS: IPRATROPIUM/ALBUTEROL SULFATE 3 ML AMPUL.NEB IH SCH ×4 (02:34→20:59)
[2021-08-16] MEDS: HEPARIN 5,000 UNIT/1 ML VIAL SUB-Q SCH ×3 (06:38→21:23)
[2021-08-16] MEDS: oxyCODONE /ACETAMINOPHEN 5-325MG TAB PO PRN ×2 (07:21→13:02)
[2021-08-16] MEDS: BUDESONIDE 0.5 MG/2 ML NEBU IH SCH ×2 (09:18→20:59)
[2021-08-16] MEDS: ASPIRIN 81 MG TAB CHEW PO SCH (12:52)
[2021-08-16] MEDS: LISINOPRIL 10 MG TAB PO SCH (12:52)
[2021-08-16] MEDS: DOCUSATE SODIUM 100 MG CAP PO SCH ×2 (12:53→21:22)
[2021-08-16] MEDS: METOPROLOL TARTRATE 25 MG TAB PO SCH ×2 (12:53→21:22)
[2021-08-16] MEDS: NICOTINE 14 MG/24 HR PATCH TD SCH (12:54)
--- NOTE | 2021-08-16 13:13 | Progress Note ---
Assessment and Plan Assessment and plan: Acute CHF (new onset); echo normal LVEF no evidence of CHF -BNP normal range -CXR shows Mild CHF or volume overload which is new since 07/06/2021 Patient's echocardiogram showed normal EF 50 to 55% No evidence of congestive heart failure Cardiology following Acute hypoxic respiratory failure : Requiring supplemental oxygen Currently patient is on 2 L of nasal cannula oxygen Wean as tolerated Continue nebulizers, steroids, supportive nursing home O2 evaluation at discharge Ongoing tobacco abuse Smoking cessation counseling done strongly advised nicotine patch DVT PPX; -On subcu Heparin Full CODE STATUS: Closely monitor the patient and adjust management as needed Follow consultants and recommendations Plan of care reviewed with the patient and her nurse Possible discharge home tomorrow if stable and if cardiology has no plans Consultants and recommendations noted and appreciated History Interval history: I have seen in the seen and examined the patient at the bedside Patient's chart and medications reviewed Patient remains on 2 L of nasal cannula oxygen Vital signs noted Hospitalist Physical - Constitutional Vitals: Temp Pulse Resp BP Pulse Ox 98.8 F 79 16 122/57 97 08/16/21 08:19 08/16/21 12:53 08/16/21 09:18 08/16/21 12:53 08/16/21 09:20 General appearance: Present: no acute distress, well-nourished (However however Dr. Joyner) - EENT Eyes: Present: PERRL, EOM intact - Neck Neck: Present: supple, normal ROM - Respiratory Respiratory effort: normal Respiratory: bilateral: diminished, negative: rales, rhonchi, wheezing - Cardiovascular Rhythm: regular Heart Sounds: Present: S1 & S2 - Extremities Extremities: no ischemia, No edema - Abdominal General gastrointestinal: soft, non-tender, non-distended, normal bowel sounds - Integumentary Integumentary: Present: clear, warm - Psychiatric Psychiatric: appropriate mood/affect, cooperative - Neurologic Neurologic: CNII-XII intact, moves all extremities HEART Score - HEART Score Troponin: Troponin T < 0.010 ng/mL (0.00-0.029) 08/14/21 13:55 Results - Labs CBC & Chem 7: 08/14/21 10:47 08/15/21 05:26 Labs: Laboratory Last Values WBC 7.7 K/mm3 (4.5-11.0) 08/14/21 10:47 RBC 4.56 M/mm3 (3.65-5.03) 08/14/21 10:47 Hgb 13.5 gm/dl (10.1-14.3) 08/14/21 10:47 Hct 41.9 % (30.3-42.9) 08/14/21 10:47 MCV 92 fl (79-97) 08/14/21 10:47 MCH 30 pg (28-32) 08/14/21 10:47 MCHC 32 % (30-34) 08/14/21 10:47 RDW 15.2 % (13.2-15.2) 08/14/21 10:47 Plt Count 167 K/mm3 (140-440) 08/14/21 10:47 Lymph % (Auto) 15.4 % (13.4-35.0) 08/14/21 10:47 Rains % (Auto) 8.2 % (0.0-7.3) H 08/14/21 10:47 Eos % (Auto) 0.9 % (0.0-4.3) 08/14/21 10:47 Baso % (Auto) 1.2 % (0.0-1.8) 08/14/21 10:47 Lymph # (Auto) 1.2 K/mm3 (1.2-5.4) 08/14/21 10:47 Rains # (Auto) 0.6 K/mm3 (0.0-0.8) 08/14/21 10:47 Eos # (Auto) 0.1 K/mm3 (0.0-0.4) 08/14/21 10:47 Baso # (Auto) 0.1 K/mm3 (0.0-0.1) 08/14/21 10:47 Add Manual Diff Complete 08/14/21 10:47 Seg Neutrophils % 74.3 % (40.0-70.0) H 08/14/21 10:47 Seg Neutrophils # 5.7 K/mm3 (1.8-7.7) 08/14/21 10:47 PT 14.1 Sec. (12.2-14.9) 08/14/21 10:47 INR 0.98 (0.87-1.13) 08/14/21 10:47 Sodium 138 mmol/L (137-145) 08/15/21 05:26 Potassium 4.0 mmol/L (3.6-5.0) 08/15/21 05:26 Chloride 97.0 mmol/L (98-107) L 08/15/21 05:26 Carbon Dioxide 25 mmol/L (22-30) 08/15/21 05:26 Anion Gap 20 mmol/L 08/15/21 05:26 BUN 19 mg/dL (7-17) H 08/15/21 05:26 Creatinine 0.8 mg/dL (0.6-1.2) 08/15/21 05:26 Estimated GFR > 60 ml/min 08/15/21 05:26 BUN/Creatinine Ratio 24 % 08/15/21 05:26 Glucose 181 mg/dL (65-100) H 08/15/21 05:26 Calcium 9.1 mg/dL (8.4-10.2) 08/15/21 05:26 Magnesium 1.80 mg/dL (1.7-2.3) 08/14/21 13:58 Total Bilirubin 0.60 mg/dL (0.1-1.2) 08/14/21 10:47 AST 20 units/L (5-40) 08/14/21 10:47 ALT 13 units/L (7-56) 08/14/21 10:47 Alkaline Phosphatase 86 units/L (35-129) 08/14/21 10:47 Total Creatine Kinase 93 units/L (30-135) 08/14/21 10:47 CK-MB (CK-2) 3.0 ng/mL (0.0-4.0) 08/14/21 10:47 CK-MB (CK-2) Rel Index 3.2 (0-4) 08/14/21 10:47 Troponin T < 0.010 ng/mL (0.00-0.029) 08/14/21 13:55 NT-Pro-B Natriuret Pep 819.7 pg/mL (0-900) 08/14/21 10:47 Total Protein 7.1 g/dL (6.3-8.2) 08/14/21 10:47 Albumin 4.4 g/dL (3.9-5) 08/14/21 10:47 Albumin/Globulin Ratio 1.6 % 08/14/21 10:47 Triglycerides 34 mg/dL (2-149) 08/15/21 05:26 Cholesterol 143 mg/dL (50-199) 08/15/21 05:26 LDL Cholesterol Direct 64 mg/dL (50-130) 08/15/21 05:26 HDL Cholesterol 78 mg/dL (40-59) H 08/15/21 05:26 Cholesterol/HDL Ratio 1.83 % 08/15/21 05:26 [place]/IV: Voiding Method Toilet Active Medications - Current Medications Current Medications: Generic Name Dose Route Start Last Admin Trade Name Freq PRN Reason Stop Dose Admin Acetaminophen 650 mg 08/14/21 13:00 Acetaminophen 325 Mg Tab PO Q4H PRN Pain MILD(1-3)/Fever >100.5/ROBLES Albuterol 2.5 mg 08/14/21 14:00 Albuterol 2.5 Mg/3 Ml Nebu IH Q3HRT PRN Shortness Of Breath Albuterol/Ipratropium 1 ampul 08/14/21 14:00 08/16/21 09:18 Ipratropium/Albuterol Sulfate 3 Ml Ampul.Neb IH 1 ampul Q6HRT JONH Administration Aspirin 81 mg 08/15/21 10:00 08/16/21 12:52 Aspirin 81 Mg Tab Chew PO 81 mg QDAY JONH Administration Atorvastatin Calcium 20 mg 08/14/21 22:00 08/15/21 21:13 Atorvastatin 20 Mg Tab PO 20 mg QHS JONH Administration Budesonide 0.5 mg 08/14/21 20:00 08/16/21 09:18 Budesonide 0.5 Mg/2 Ml Nebu IH 0.5 mg Q12HRT JONH Administration Docusate Sodium 100 mg 08/14/21 22:00 08/16/21 12:53 Docusate Sodium 100 Mg Cap PO 100 mg BID JONH Administration Heparin Sodium (Porcine) 5,000 unit 08/14/21 14:00 08/16/21 13:08 Heparin 5,000 Unit/1 Ml Vial SUB-Q 5,000 unit Q8HR JONH Administration Lisinopril 10 mg 08/15/21 10:00 08/16/21 12:52 Lisinopril 10 Mg Tab PO 10 mg QDAY JONH Administration Methylprednisolone Sodium Succinate 60 mg 08/14/21 18:00 08/16/21 12:55 Methylprednisolone Sod Succinate 125 Mg/2 Ml Inj IV 60 mg Q8H JONH Administration Metoprolol Tartrate 25 mg 08/14/21 15:00 08/16/21 12:53 Metoprolol Tartrate 25 Mg Tab PO 25 mg BID JONH Administration Nicotine 14 mg 08/14/21 14:00 08/16/21 12:54 Nicotine 14 Mg/24 Hr Patch TD 14 mg QDAY JONH Administration Nitroglycerin 0.4 mg 08/14/21 13:00 08/16/21 01:33 Nitroglycerin 0.4 Mg Tab Subl SL 0.4 mg .Q5MIN PRN Administration Chest Pain Ondansetron HCl 4 mg 08/14/21 13:00 Ondansetron 4 Mg/2 Ml Inj IV Q8H PRN Nausea And Vomiting Oxycodone/Acetaminophen 1 tab 08/14/21 13:00 08/16/21 13:02 Oxycodone /Acetaminophen 5-325mg Tab PO 1 tab Q6H PRN Administration Pain, Moderate (4-6) Sodium Chloride 10 ml 08/14/21 22:00 08/16/21 12:53 Sodium Chloride 0.9% 10 Ml Flush Syringe IV 10 ml BID JONH Administration Sodium Chloride 10 ml 08/14/21 13:00 Sodium Chloride 0.9% 10 Ml Flush Syringe IV PRN PRN LINE FLUSH
--- NOTE | 2021-08-16 17:24 | Progress Note ---
Assessment and Plan Schedule Lexiscan stress MPI in a.m. - Patient Problems (1) COPD exacerbation Current Visit: Yes Status: Acute (2) Aortic regurgitation Current Visit: Yes Status: Acute (3) History of CVA (cerebrovascular accident) Current Visit: Yes Status: Chronic Subjective Date of service: 08/16/21 Principal diagnosis: COPD exacerbation Interval history: She claims that she experienced intermittent, sharp, substernal chest pain last night. She's less short of breath this morning and chest pain is better. Objective Vital Signs Last Vital Signs Temp 98.8 F 08/16/21 08:19 Pulse 84 08/16/21 15:09 Resp 16 08/16/21 15:09 BP 122/57 08/16/21 12:53 Pulse Ox 98 08/16/21 13:42 - Physical Examination General: No Apparent Distress HEENT: Positive: EOMI, Normocephaly, Mucus Membranes Moist Neck: Positive: neck supple, trachea midline Cardiac: Positive: Reg Rate and Rhythm, S1/S2 Neuro: Positive: Grossly Intact Abdomen: Positive: Soft, Active Bowel Sounds. Negative: Tender Skin: Negative: Rash Extremities: Present: Cool. Absent: edema - Imaging and Cardiology EKG: report reviewed, image reviewed Echo: pending - Telemetry EKG Rhythm: Sinus Rhythm - EKG Sinus rhythms and dysrhythmias: sinus rhythm AV and intraventricular conduction: left bundle branch block, left anterior fascicular
[2021-08-17] MEDS: IPRATROPIUM/ALBUTEROL SULFATE 3 ML AMPUL.NEB IH SCH ×3 (02:15→13:50)
[2021-08-17] MEDS: HEPARIN 5,000 UNIT/1 ML VIAL SUB-Q SCH ×2 (05:52→14:53)
[2021-08-17] MEDS: methylPREDNISolone Sod Succinate 125 MG/2 ML INJ IV SCH ×2 (05:53→11:08)
[2021-08-17] MEDS ORDERED: REGADENOSON 0.4 MG/5 ML INJ IV ONE (06:54)
[2021-08-17] MEDS: BUDESONIDE 0.5 MG/2 ML NEBU IH SCH (09:24)
--- NOTE | 2021-08-17 10:29 | Progress Note ---
Assessment and Plan Patient is a 61-year-old female with a past medical history of COPD/asthma, CVA, and current smoker for over 30 years who presented to the ED today with a complaint of shortness of breath which began last night. Acute respiratory failure COPD exacerbation Hypertension History of CVA Tobacco abuse Echo 08/14/2021-EF 50 to 55% mild diastolic dysfunction is present. Impaired relaxation pattern. Mild mitral regurgitation. Mild tricuspid regurgitation. Moderate aortic regurgitation. Right ventricle is mildly dilated. Right ventricle systolic function is normal Lexiscan MPI stress test 08/17/2021-normal study. No scintigraphic evidence of myocardial ischemia or scar. Normal LV size and function with no regional wall motion Plan: EKG shows sinus rhythm 92 with incomplete RBBB and LAFB. No acute ischemic changes. Troponins negative x2. AMI ruled out Patient had negative stress test. See report for full details Currently on aspirin, Lipitor, metoprolol 25 mg p.o. twice daily, and lisinopril 10 mg p.o. daily Patient had normal echo and normal stress test Cardiac status otherwise stable for discharge will see as needed Patient should follow-up with her primary care provider in 1 to 2 weeks after discharge. Patient in conjunction with Dr. Baker who agrees with this plan of care - Patient Problems (1) Tobacco abuse Current Visit: Yes Status: Acute (2) History of CVA (cerebrovascular accident) Current Visit: Yes Status: Chronic (3) Aortic regurgitation Current Visit: Yes Status: Acute (4) COPD exacerbation Current Visit: Yes Status: Acute Subjective Date of service: 08/17/21 Principal diagnosis: COPD exacerbation Interval history: Patient for Lexiscan MPI stress test Sinus 70s on monitor with no evidence Objective Vital Signs Temp Pulse Pulse Resp Resp BP BP 08/17/21 05:47 98.1 F 70 16 101/48 08/16/21 23:37 18 08/16/21 21:01 89 16 08/16/21 20:17 97.7 F 77 16 116/66 08/16/21 20:00 08/16/21 15:09 84 16 08/16/21 13:42 08/16/21 12:53 79 122/57 08/16/21 12:52 79 122/57 Pulse Ox 08/17/21 05:47 97 08/16/21 23:37 98 08/16/21 21:01 08/16/21 20:17 97 08/16/21 20:00 97 08/16/21 15:09 08/16/21 13:42 98 08/16/21 12:53 08/16/21 12:52 - Physical Examination General: No Apparent Distress HEENT: Positive: EOMI, Normocephaly, Mucus Membranes Moist Neck: Positive: neck supple, trachea midline Cardiac: Positive: Reg Rate and Rhythm, Systolic Murmur Lungs: Positive: Decreased Breath Sounds Neuro: Positive: Grossly Intact Abdomen: Positive: Soft, Active Bowel Sounds. Negative: Tender Skin: Negative: Rash Extremities: Present: Cool. Absent: edema - Imaging and Cardiology EKG: report reviewed, image reviewed Echo: report reviewed - Telemetry EKG Rhythm: Sinus Rhythm - EKG Sinus rhythms and dysrhythmias: sinus rhythm AV and intraventricular conduction: left bundle branch block, left anterior fascicular
--- NOTE | 2021-08-17 10:49 | Nuclear Medicine Report ---
APPROVED REPORT Exam: Nuclear Stress Test Indication: [facility] H[facility]: 5 ft 7 in Wt: 160 lbs BSA: 1.84 m2 HR: 65 bpmBP: 116/54 mmHgBMI: 25.05 Rhythm: SINUS RHYTHM RIGHT ATRIAL ENLARGEMENT Stress Test Details Stress Test: Pharmacologic stress testing performed using 0.4 mg of regadenoson per 5 mL given IV over 10 seconds. Reason for pharmacologic stress test: physical limitation. HR Resting HR: 65 bpm Max HR Achieved: 87 bpm Max Heart Rate (APMHR): 158.565016 bpm Target HR (85% APMHR): 134.922996 bpm % of APMHR: 55.06 Recovery HR: 82 bpm BP Resting BP: 107/56 mmHg Max BP: 116/54 mmHg Recovery BP: 112/55 mmHg BP response to stress: SINUS RHYTHM ECG Resting ECG: Sinus Rhythm Stress ECG: Sinus Rhythm Recovery ECG: Sinus Rhythm NM EXAM: Myocardial Perfusion REST/STRESS Imaging Protocol: Rest Tc-99m/Stress Tc-99m 1 day Resting Data Rest SPECT myocardial perfusion imaging was performed in supine position 45 minutes following the intravenous injection of 10 mCi of Tc-99m Myoview. Time of rest injection: 0715 Pharmacologic Stress Pharmacologic stress test was performed by injecting Regadenoson 0.4 mg IV push followed by the intravenous injection of 28 mCi of Tc-99m Myoview. Time of stress injection: 0850 Gated Stress SPECT was performed 30 minutes after stress injection. The images were gated to evaluate regional wall motion and calculate left ventricular ejection fraction. Study Quality Study: excellent Lung Uptake: Normal Study Data TID = 1.11. Perfusion Wall Motion The rest and stress images show normal left ventricular wall motion. Nuclear Conclusion ECG Findings: negative for ischemia Clinical Findings: negative for ischemia Nuclear Findings: negative for ischemia Exercise Capacity: not assessed Left Ventricular Function: normal negative lexiscan ekg Normal study. No scintigraphic evidence for myocardial ischemia or scar. Normal left ventricular size and function with no regional wall motion abnormalities.
[2021-08-17 10:54] VITALS: BP 112/58
[2021-08-17] MEDS: ASPIRIN 81 MG TAB CHEW PO SCH (11:07)
[2021-08-17] MEDS: DOCUSATE SODIUM 100 MG CAP PO SCH (11:07)
[2021-08-17] MEDS: NICOTINE 14 MG/24 HR PATCH TD SCH (11:07)
[2021-08-17] MEDS: METOPROLOL TARTRATE 25 MG TAB PO SCH (11:08)
[2021-08-17] MEDS: LISINOPRIL 10 MG TAB PO SCH (11:09)
--- NOTE | 2021-08-17 12:48 | Discharge Summary ---
Providers - Providers Date of Admission: 08/16/21 13:11 Date of discharge: 08/17/21 Attending physician: JOE REYNAGA 08/14/21 12:33 Consult to Physician [CONS] Routine Comment: Consulting Provider: SUBHASH SOFIA Physician Instructions: Reason For Exam: new onset chf Primary care physician: [employer] Hospitalization Condition: Fair Hospital course: Acute hypoxic respiratory failure : Requiring supplemental oxygen Currently patient is on 2 L of nasal cannula oxygen Wean as tolerated Continue nebulizers, steroids, supportive senior care O2 evaluation at discharge Acute CHF (new onset); acute CHF ruled out echo normal LVEF no evidence of CHF -BNP normal range -CXR shows Mild CHF or volume overload which is new since 07/06/2021 Patient's echocardiogram showed normal EF 50 to 55% No evidence of congestive heart failure Cardiology following Acute exacerbation of COPD ; hypertension Dyslipidemia ongoing tobacco abuse Smoking cessation counseling done strongly advised nicotine patch DVT PPX; -On subcu Heparin Full CODE STATUS: Closely monitor the patient and adjust management as needed Follow consultants and recommendations Plan of care reviewed with the patient and her nurse Possible discharge home tomorrow if stable and if cardiology has no plans Consultants and recommendations noted and appreciated Disposition: HOME / SELF CARE / HOMELESS Final Discharge Diagnosis (Prints w/discharge instructions): Acute hypoxic respiratory failure requiring supplemental oxygen. Acute exacerbation of COPD. Hypertension. Dyslipidemia. Ongoing tobacco use Time spent for discharge: 35 min Exam - Constitutional Vitals: Temp Pulse Resp BP Pulse Ox 97.6 F 76 18 112/58 95 08/17/21 11:00 08/17/21 11:09 08/17/21 11:00 08/17/21 08:56 08/17/21 12:15 Plan Activity: advance as tolerated Diet: other (Cardiac diet) Additional Instructions: Patient's resting room air, ambulatory room air oxygen saturation is more than 95%, No indication for home oxygen. Advised to follow primary care physician in 1 week. Patient is advised 2 days of work excuse on 08/18/2021 and 08/19/2021. If you have worsening symptoms contact MD or go to the nearest emergency room as needed. Smoking cessation counseling done strongly advised to quit tobacco use. Nicotine patch as needed Follow up with: PRIMARY CARE, [Primary Care Provider] - 7 Days Prescriptions: Aspirin [Aspirin BABY CHEW TAB] 81 mg PO QDAY #30 tab.chew Nicotine [Habitrol] 14 mg TD QDAY #30 patch AtorvaSTATin [Lipitor] 20 mg PO QHS #30 tablet Metoprolol [Lopressor TAB] 25 mg PO BID #60 tablet Albuterol Mdi (or & Nicu Only) [ProAir HFA Inhaler] 2 puff IH QID PRN #8.5 gram PRN Reason: Shortness Of Breath ALBUTEROL NEB's [Proventil 0.083% NEBS] 2.5 mg IH PRN PRN 30 Days #30 ml PRN Reason: Shortness Of Breath Budesonide [Pulmicort Respules] 0.5 mg IH Q12HRT #30 nebu lisinopriL [Zestril TAB] 10 mg PO QDAY #30 tablet
== END 2021-08-17 14:53 | disposition home or self-care (01) | DRG 189 ==
LOC: ED 10:16 → 4A 12:35 → OBSVTOIN 08-16 13:11
PROVIDERS: ADMIT Internal Medicine; ATTEND Internal Medicine
DX: J96.01 Acute respiratory failure with hypoxia (principal); J44.1 Chronic obstructive pulmonary disease with (acute) exacerbation; Z98.51 Tubal ligation status; F17.200 Nicotine dependence, unspecified, uncomplicated; Z71.6 Tobacco abuse counseling; Z79.899 Other long term (current) drug therapy; I35.1 Nonrheumatic aortic (valve) insufficiency; E78.5 Hyperlipidemia, unspecified; Z82.49 Family history of ischemic heart disease and other diseases of the circulatory system; Z79.82 Long term (current) use of aspirin; Z86.73 Personal history of transient ischemic attack (TIA), and cerebral infarction without residual deficits; Z88.0 Allergy status to penicillin
CPT/HCPCS: 36415; 71045; 71275; 78452; 80048; 80053; 80061; 82550; 82553; 83735; 83880; 84484; 85025; 85610; 93005; 93017; 93306; 94640; 94644; 94760; G0378; A9502; C8929; J1644; J1940; J2785; J2930; J7040; Q9967